=== PATIENT | female | born 1970 | race Caucasian/White ===

== ENCOUNTER 2017-10-17 07:05 | Day surgery (SDC) | payer OTHER ==
[~2017-10-17] VITALS: Ht 160 cm; Wt 63.0 kg
[2017-10-17] MEDS ORDERED: CEFAZOLIN SOD 1 GM in D5W 50 ML IV ONE (07:30)
[2017-10-17] MEDS ORDERED: NS IRRIG SOLN 1000 ML IR ONE (10:10)
[2017-10-17] MEDS ORDERED: DEXTROSE 50% JECT 50 ML DISP.SYRIN IVP ONE (10:10)
[2017-10-17] MEDS ORDERED: NS 1000 ML BAG IV ONE (10:10)
[2017-10-17] MEDS ORDERED: FUROSEMIDE 20 MG/2 ML VIAL IVP ONE (10:10)
[2017-10-17] MEDS ORDERED: MIDAZOLAM HCL 5 MG/5 ML VIAL IVP ONE (10:10)
[2017-10-17] MEDS ORDERED: ROCURONIUM BROMIDE 10 MG/ML (ZEMURON) IV ONE (10:10)
[2017-10-17] MEDS ORDERED: LR 1,000 ML IV.SOLN IV ONE (10:10)
[2017-10-17] MEDS ORDERED: BUPIVACAINE /PF 0.25% 30 ML VIAL INJ ONE (10:10)
[2017-10-17] MEDS ORDERED: fentaNYL CITRATE 250 MCG/5 ML AMP IV ONE (10:10)
[2017-10-17] MEDS ORDERED: DEXAMETHASONE SOD PHOSPHATE 4 MG/ML VIAL IVP ONE (10:10)
[2017-10-17] MEDS ORDERED: KETOROLAC TROMETHAMINE 30 MG VIAL IVP ONE ×2 (10:10→15:00)
[2017-10-17] MEDS ORDERED: SEVOFLURANE 15 MIN GAS INH ONE (10:10)
[2017-10-17] MEDS ORDERED: PROPOFOL 200MG/ 20ML VIAL (DIPRIVAN) IV ONE (10:10)
[2017-10-17] MEDS ORDERED: LR 1,000 ML IV SCH (10:53)
[2017-10-17] MEDS ORDERED: METOCLOPRAMIDE HCL 10 MG/2 ML VIAL IVP PRN (11:00)
[2017-10-17] MEDS ORDERED: MORPHINE 4 MG/ML INJ. SYRINGE IVP PRN ×3 (11:00)
[2017-10-17] MEDS ORDERED: ONDANSETRON HCL 4 MG/2 ML VIAL IVP PRN (12:30)
[2017-10-17] MEDS ORDERED: OXYCODONE/ACETAMINOPHEN 5-325 TABLET PO PRN ×2 (12:30)
[2017-10-17] MEDS ORDERED: HYDROcodone/ACETAMIN 5-325 MG TAB (NORCO/ VICODIN) PO PRN (12:30)
[2017-10-17] MEDS ORDERED: OXYCODONE/ACETAMINOPHEN 5-325 TABLET ONE (13:51)
[2017-10-17] MEDS ORDERED: ONDANSETRON HCL 4 MG/2 ML VIAL ONE (14:07)
[2017-10-17 14:13] VITALS: BP_SYST 116
[2017-10-17] MEDS ORDERED: KETOROLAC TROMETHAMINE 30 MG VIAL ONE (14:57)
== END 2017-10-17 16:20 | disposition home or self-care (01) ==
LOC: SDS 07:05 → SMU 07:06 → SDS 16:20
PROVIDERS: ATTEND Specialist
DX: D25.2 Subserosal leiomyoma of uterus (principal); N80.0 Endometriosis of uterus; E78.00 Pure hypercholesterolemia, unspecified; Z98.890 Other specified postprocedural states; Z68.24 Body mass index [BMI] 24.0-24.9, adult
CPT/HCPCS: 58573; 88307; C1727; J0690; J1100; J1885; J1940; J2250; J2405; J2704; J3010; J3490; J7030; J7060; J7120; E0190